=== PATIENT | female | born 1980 | race Two or more races ===

== ENCOUNTER → 2024-03-08 | Outpatient (CLI) | payer BC, OTHER, SELFPAY ==
--- NOTE | 2024-03-08 08:15 | XR_ITS ---
Examination: Screening digital mammography, bilateral Computer aided detection 3-D breast Tomosynthesis, bilateral Date and time of exam: March 08, 2024 1749 hours No priors Indication: Screening, family history, mother breast cancer Technique: Nonmagnified MLO, CC views of the breasts to been obtained, reconstructed from 3-D Tomosynthesis images. R2 computer aided detection program utilized for evaluation of suspicious masses and/or abnormal calcifications. 3-D Tomosynthesis images obtained. Findings: The breasts are heterogeneously dense, which may obscure small masses 28 mm focal asymmetry upper right breast MLO view, 6.1 cm from the nipple 12 mm focal asymmetry slightly outer left breast posterior depth 7 cm from the nipple on the CC view Impression: BI-RADS Category 0: Incomplete: Need additional imaging evaluation 28 mm focal asymmetry upper right breast, recommend follow-up spot tomographic views upper outer quadrant right breast 12 mm focal asymmetry slightly outer left breast CC view, recommend follow-up spot tomographic CC view, 6 spot tomographic MLO view upper left breast Recommend bilateral breast sonography to complete the workup
== END | disposition home or self-care (01) ==
LOC: CDIM 07:40
PROVIDERS: Referring Provider Registered Nurse; Visit Provider Registered Nurse
DX: Z12.31 Encounter for screening mammogram for malignant neoplasm of breast (principal); R92.8 Other abnormal and inconclusive findings on diagnostic imaging of breast; N64.89 Other specified disorders of breast; Z80.3 Family history of malignant neoplasm of breast
CPT/HCPCS: 77063; 77067

== ENCOUNTER → 2024-04-20 | Outpatient (CLI) | payer BC, OTHER, SELFPAY ==
--- NOTE | 2024-04-20 09:00 | XR_ITS ---
Examination: Breast ultrasound complete, bilateral Date and time of exam: April 20, 2024 0909 hours INDICATIONS: Mammogram March 08, 2024 28 mm focal asymmetry upper right breast 12 mm focal asymmetry outer left breast Technique: Real-time grayscale ultrasonographic imaging bilateral breasts, including all 4 quadrants as well as nipple retroareolar and axillary regions. Findings: Sonographic images right breast 10:00 cyst 5 x 6 mm No solid nodules Sonographic images left breast 5:00 cyst 14 x 16 mm Retroareolar cyst 14 x 13 mm Retroareolar cyst 11 x 12 mm No solid nodules Multiple smaller cysts IMPRESSION: BI-RADS Category 2: Benign findings
--- NOTE | 2024-04-20 10:15 | XR_ITS ---
Examination: Diagnostic digital mammography, bilateral Computer aided detection 3-D breast Tomosynthesis, bilateral Date and time of exam: April 20, 2024 0938 hours INDICATIONS: Mammogram March 08, 2024 28 mm focal asymmetry upper right breast 12 mm focal asymmetry outer left breast Technique: Nonmagnified MLO, CC views of the breasts to been obtained, reconstructed from 3-D Tomosynthesis images. R2 computer aided detection program utilized for evaluation of suspicious masses and/or abnormal calcifications. 3-D Tomosynthesis images obtained. Findings: The breasts are heterogeneously dense, which may obscure small masses No suspicious masses are depicted Impression: BI-RADS Category 2: Benign findings Return to yearly follow-up mammography.
== END | disposition home or self-care (01) ==
LOC: CDIM 08:48
PROVIDERS: Referring Provider Registered Nurse; Visit Provider Registered Nurse
DX: R92.323 Mammographic fibroglandular density, bilateral breasts (principal); N60.01 Solitary cyst of right breast; N60.02 Solitary cyst of left breast
CPT/HCPCS: 76641; 77062; 77066; G0279